=== PATIENT | male | born 1955 | race Caucasian/White ===

== ENCOUNTER 2024-05-25 12:15 | Observation (INO) | payer OTHER ==
[2024-05-25] MEDS: SODIUM CHLORIDE 0.9% 500 ML INFUS.BAG IV ONE (13:18)
[2024-05-25 13:51] LABS: BASO % 1.6 % (0-2.0); EOS % 2.9 % (0-4.5); HEMATOCRIT 43.8 % (35.4-49); HEMOGLOBIN 14.6 GM/dL (11.7-16.9); LYMPH % 16.6 % (8-40); MCH 28.6 pg (25.7-33.7); MCHC 33.3 g/dl (32.0-35.9); MEAN CELL VOLUME 85.7 fl (80-96); MEAN PLT VOLUME 8.9 fl (7.5-11.1); MONO % 9.8 % (3.8-10.2); NEUT % 69.1 % (42.8-82.8); PLATELET COUNT 241 10^3/uL (134-434); RBC 5.11 M/mm3 (4.00-5.60); WHITE BLOOD COUNT 7.7 K/mm3 (4.0-10.0)
[2024-05-25 13:58] LABS: INR 1.02 (0.83-1.09); PROTHROMBIN TIME (PATIENT) 11.2 SEC (9.7-13.0)
[2024-05-25 14:01] LABS: ACTIVATED PTT 28.8 SECONDS (25.2-36.5)
[2024-05-25 14:45] LABS: ERYTHROCYTE SEDIMENTATION RATE 10 mm/hr (0-20)
[2024-05-25 15:19] LABS: ALBUMIN 3.6 g/dl (3.4-5.0); CALCIUM 8.5 mg/dL (8.5-10.1)
[2024-05-25 15:22] LABS: CREATININE 1.1 mg/dL (0.55-1.3)
[2024-05-25 15:24] LABS: BILIRUBIN,TOTAL 0.5 mg/dL (0.2-1); TOT PROT 6.8 g/dl (6.4-8.2)
[2024-05-25 16:29] LABS: HIV INTERPRETATION NEGATIVE (NEGATIVE)
[2024-05-25] MEDS ORDERED: ACETAMINOPHEN 325 MG TABLET (FP) PO PRN (16:29)
[2024-05-25] MEDS ORDERED: INSULIN ASPART SLIDING SCALE (NOVOLOG) 1 VIAL SQ ONE (17:59)
[2024-05-25] MEDS: INSULIN ASPART SLIDING SCALE (NOVOLOG) 1 VIAL SQ SCH (18:10)
[2024-05-25] MEDS ORDERED: PATIENT'S OWN MEDICATION (NON-FORMULARY) (Gabapentin [Neurontin] 600 MG Tablet) PO SCH (22:00)
[2024-05-25] MEDS: GABAPENTIN 300 MG CAPSULE PO SCH (22:24)
[2024-05-26] MEDS: BUPIVACAINE HCL/PF 0.5% (5 MG/ML) 30 ML VIAL IJ ONE
[2024-05-26 03:21] VITALS: BMI 34.4
[2024-05-26] MEDS: HYDROCHLOROTHIAZIDE 25 MG TABLET (FP) PO SCH (09:16)
[2024-05-26] MEDS: ASPIRIN 81 MG CHEWABLE TABLETS PO SCH (09:16)
[2024-05-26] MEDS: LISINOPRIL 20 MG TABLET PO SCH (09:16)
[2024-05-26] MEDS: FUROSEMIDE 20 MG TABLET (FP) PO SCH (09:16)
[2024-05-26] MEDS: amLODIPine BESYLATE 2.5 MG TABLET (FP) PO SCH (09:16)
[2024-05-26 09:30] LABS: BASO % 2.3 % (0-2.0); EOS % 5.7 % (0-4.5); HEMATOCRIT 43.1 % (35.4-49); HEMOGLOBIN 13.9 GM/dL (11.7-16.9); LYMPH % 19.6 % (8-40); MCH 28.2 pg (25.7-33.7); MCHC 32.3 g/dl (32.0-35.9); MEAN CELL VOLUME 87.3 fl (80-96); MEAN PLT VOLUME 8.9 fl (7.5-11.1); MONO % 8.4 % (3.8-10.2); PLATELET COUNT 208 10^3/uL (134-434); RBC 4.94 M/mm3 (4.00-5.60); RDW 14.1 % (11.9-15.9)
[2024-05-26 09:58] LABS: POTASSIUM 4.1 mmol/L (3.5-5.1)
[2024-05-26 10:00] LABS: ALBUMIN 3.2 g/dl (3.4-5.0); BLOOD UREA NITROGEN 17.7 mg/dL (7-18); CALCIUM 8.1 mg/dL (8.5-10.1)
[2024-05-26] MEDS ORDERED: AMLODIPINE BESYLATE 2.5 MG PO SCH (10:00)
[2024-05-26] MEDS ORDERED: PATIENT'S OWN MEDICATION (NON-FORMULARY) (Lisinopril/Hydrochlorothiazide [Lisinopril-Hctz PO SCH (10:00)
[2024-05-26 10:03] LABS: PHOSPHOROUS 1.8 mg/dL (2.5-4.9)
[2024-05-26 10:05] LABS: BILIRUBIN,TOTAL 0.8 mg/dL (0.2-1); TOT PROT 6.1 g/dl (6.4-8.2)
[2024-05-26] MEDS ORDERED: LIDOCAINE HCL 2% (20ML MULTI-DOSE VIAL) ONE (13:28)
[2024-05-26] MEDS ORDERED: BUPIVACAINE HCL/PF 0.5% (5MG/ML) 10 ML VIAL ONE (13:28)
[2024-05-26] MEDS ORDERED: LIDOCAINE HCL 1%, 10 MG/ML (20ML VIAL) ONE (13:28)
[2024-05-26] MEDS: NAPH,MB-DB/K PH,MBDB POWDER PACKET PO ONE ×2 (13:51→21:50)
[2024-05-26] MEDS ORDERED: LIDOCAINE HCL/PF 2% SDV 5ML VIAL ONE (14:36)
[2024-05-26] MEDS ORDERED: PROPOFOL 40 ML ONE (14:36)
[2024-05-26] MEDS ORDERED: MIDAZOLAM HCL 2 MG/2 ML SINGLE DOSE VIAL ONE (14:39)
[2024-05-26] MEDS: LIDOCAINE HCL 2% (50ML VIAL) INF ONE ×3 (15:23)
[2024-05-26] MEDS ORDERED: PROPOFOL 20 ML ONE (15:53)
[2024-05-26] MEDS ORDERED: ONDANSETRON 4 MG/2 ML VIAL IVPUSH PRN ×2 (16:12→16:24)
[2024-05-26] MEDS ORDERED: ACETAMINOPHEN 1000 MG/100 ML BAG IVPB ONE (16:12)
[2024-05-26] MEDS ORDERED: KETOROLAC TROMETHAMINE 30 MG/1 ML VIAL IVPUSH ONE ×2 (16:13→16:24)
[2024-05-26] MEDS ORDERED: LACTATED RINGERS SOLUTION 1,000 ML IV SCH ×2 (16:15→16:24)
[2024-05-26] MEDS: ACETAMINOPHEN 1000 MG/100 ML BAG IVPB ONE (16:34)
[2024-05-26] MEDS: INSULIN ASPART SLIDING SCALE (NOVOLOG) 1 VIAL SQ SCH (17:22)
[2024-05-26 18:29] VITALS: RESP 18
[2024-05-26] MEDS: GABAPENTIN 300 MG CAPSULE PO SCH (21:32)
[2024-05-27 04:10] VITALS: BP 100/67; PULSE 75; TEMP 97.2
[2024-05-27] MEDS: ACETAMINOPHEN 325 MG TABLET (FP) PO PRN (09:08)
[2024-05-27] MEDS: HYDROCHLOROTHIAZIDE 25 MG TABLET (FP) PO SCH (09:09)
[2024-05-27] MEDS: ASPIRIN 81 MG CHEWABLE TABLETS PO SCH (09:09)
[2024-05-27] MEDS: LISINOPRIL 20 MG TABLET PO SCH (09:09)
[2024-05-27] MEDS: amLODIPine BESYLATE 2.5 MG TABLET (FP) PO SCH (09:09)
[2024-05-27 09:54] LABS: HEMOGLOBIN 15.6 GM/dL (11.7-16.9); MCH 28.6 pg (25.7-33.7); MCHC 33.3 g/dl (32.0-35.9); MEAN CELL VOLUME 86.1 fl (80-96); MEAN PLT VOLUME 8.6 fl (7.5-11.1); PLATELET COUNT 253 10^3/uL (134-434); RBC 5.46 M/mm3 (4.00-5.60); RDW 13.9 % (11.9-15.9); WHITE BLOOD COUNT 10.2 K/mm3 (4.0-10.0)
[2024-05-27 10:35] LABS: BLOOD UREA NITROGEN 20.2 mg/dL (7-18); POTASSIUM 4.2 mmol/L (3.5-5.1)
[2024-05-28] MEDS ORDERED: FUROSEMIDE 20 MG TABLET (FP) PO SCH (10:00)
== END 2024-05-27 13:31 | disposition home or self-care (01) ==
LOC: JER 12:15 → JERBED 16:02 → J6S 19:12
PROVIDERS: ADMIT Internal Medicine; ATTEND Internal Medicine
PROC: 0QBQ0ZX Excision of Right Toe Phalanx, Open Approach, Diagnostic (ICD-10-PCS; principal; 2024-05-25)
PROC: 3E033NZ Introduction of Analgesics, Hypnotics, Sedatives into Peripheral Vein, Percutaneous Approach (ICD-10-PCS; 2024-05-25)
PROC: 3E013VG Introduction of Insulin into Subcutaneous Tissue, Percutaneous Approach (ICD-10-PCS; 2024-05-25)
PROC: 3E0337Z Introduction of Electrolytic and Water Balance Substance into Peripheral Vein, Percutaneous Approach (ICD-10-PCS; 2024-05-25)
DX: M86.671 Other chronic osteomyelitis, right ankle and foot (principal); L97.519 Non-pressure chronic ulcer of other part of right foot with unspecified severity; E10.40 Type 1 diabetes mellitus with diabetic neuropathy, unspecified; E10.621 Type 1 diabetes mellitus with foot ulcer; I10 Essential (primary) hypertension; M86.9 Osteomyelitis, unspecified; S91.101A Unspecified open wound of right great toe without damage to nail, initial encounter; X58.XXXA Exposure to other specified factors, initial encounter
CPT/HCPCS: 36415; 73630-TC-RT-FY; 80048; 80053; 82962; 83735; 84100; 85025; 85027; 85610; 85651; 85730; 86140; 86803; 86850; 86900; 86901; 87070; 87075; 87186; 87205; 87389; 88307-TC; 88311-TC; 93005; 93010; 94760; 96372; 96374; 99285-25; G0378; J0131

== ENCOUNTER 2024-06-01 11:13 | Inpatient (IN) | payer OTHER ==
[2024-06-01 13:25] LABS: INR 0.98 (0.83-1.09); PROTHROMBIN TIME (PATIENT) 10.7 SEC (9.7-13.0)
[2024-06-01 13:26] LABS: EOS % 5.4 % (0-4.5); HEMATOCRIT 44.2 % (35.4-49); LYMPH % 21.4 % (8-40); MCH 29.1 pg (25.7-33.7); MEAN CELL VOLUME 85.7 fl (80-96); MONO % 9.5 % (3.8-10.2); NEUT % 61.7 % (42.8-82.8); RBC 5.15 M/mm3 (4.00-5.60); RDW 14.3 % (11.9-15.9); WHITE BLOOD COUNT 9.2 K/mm3 (4.0-10.0)
[2024-06-01 13:28] LABS: ACTIVATED PTT 21.1 SECONDS (25.2-36.5)
[2024-06-01 13:53] LABS: CHLORIDE 102 mmol/L (98-107); SODIUM 135 mmol/L (136-145)
[2024-06-01 13:55] LABS: CALCIUM 8.7 mg/dL (8.5-10.1)
[2024-06-01 13:56] LABS: ALBUMIN 3.3 g/dl (3.4-5.0); BLOOD UREA NITROGEN 26.8 mg/dL (7-18); CO2 29 mmol/L (21-32); GLUCOSE,RANDOM 141 mg/dL (74-106)
[2024-06-01 13:59] LABS: CREATININE 1.2 mg/dL (0.55-1.3); SGOT/AST 65 U/L (15-37); SGPT/ALT 33 U/L (13-61)
[2024-06-01 14:00] LABS: ANION GAP 4 mmol/L (4-13); POTASSIUM 8.6 mmol/L (3.5-5.1)
[2024-06-01 14:01] LABS: BILIRUBIN,TOTAL 0.6 mg/dL (0.2-1); TOT PROT 7.2 g/dl (6.4-8.2)
[2024-06-01 14:02] LABS: ALK PHOS 66 U/L (45-117)
[2024-06-01] MEDS: FUROSEMIDE 20 MG TABLET (FP) PO SCH ×2 (14:49→17:23)
[2024-06-01 15:28] LABS: ERYTHROCYTE SEDIMENTATION RATE 7 mm/hr (0-20)
[2024-06-01] MEDS ORDERED: FUROSEMIDE 20 MG TABLET (FP) PO SCH (16:00)
[2024-06-01 16:07] VITALS: BMI 33.3
[2024-06-01] MEDS: CEFTRIAXONE 2 GM-D5W BAG 2 GM/50 ML BAG IVPB SCH (17:21)
[2024-06-01] MEDS: INSULIN ASPART SLIDING SCALE (NOVOLOG) 1 VIAL SQ SCH (17:21)
[2024-06-01 19:57] LABS: CALCIUM 8.5 mg/dL (8.5-10.1)
[2024-06-01 19:58] LABS: BLOOD UREA NITROGEN 23.2 mg/dL (7-18)
[2024-06-01 20:01] LABS: CREATININE 1.1 mg/dL (0.55-1.3)
[2024-06-01] MEDS: GABAPENTIN 300 MG CAPSULE PO SCH (21:33)
[2024-06-01] MEDS ORDERED: PATIENT'S OWN MEDICATION (NON-FORMULARY) (Gabapentin [Neurontin] 600 MG Tablet) PO SCH (22:00)
[2024-06-02] MEDS ORDERED: PATIENT'S OWN MEDICATION (NON-FORMULARY) (Lisinopril/Hydrochlorothiazide [Lisinopril-Hctz PO SCH (10:00)
[2024-06-02] MEDS ORDERED: AMLODIPINE BESYLATE 2.5 MG PO SCH (10:00)
[2024-06-02] MEDS: ASPIRIN 81 MG CHEWABLE TABLETS PO SCH (10:21)
[2024-06-02] MEDS: HYDROCHLOROTHIAZIDE 25 MG TABLET (FP) PO SCH (10:21)
[2024-06-02] MEDS: LISINOPRIL 20 MG TABLET PO SCH (10:22)
[2024-06-02] MEDS: amLODIPine BESYLATE 2.5 MG TABLET (FP) PO SCH (10:22)
[2024-06-02 12:41] LABS: BASO % 0.7 % (0-2.0); EOS % 5.3 % (0-4.5); HEMATOCRIT 45.4 % (35.4-49); HEMOGLOBIN 14.9 GM/dL (11.7-16.9); LYMPH % 18.4 % (8-40); MCH 28.7 pg (25.7-33.7); MCHC 32.9 g/dl (32.0-35.9); MEAN CELL VOLUME 87.4 fl (80-96); MEAN PLT VOLUME 9.1 fl (7.5-11.1); MONO % 6.2 % (3.8-10.2); NEUT % 69.4 % (42.8-82.8); PLATELET COUNT 232 10^3/uL (134-434); RDW 14.1 % (11.9-15.9); WHITE BLOOD COUNT 7.1 K/mm3 (4.0-10.0)
[2024-06-02] MEDS: INSULIN (LEVEMIR) 100 UNITS/ML UNITS SQ SCH (21:28)
[2024-06-03 14:55] VITALS: BP 123/67; PULSE 86; RESP 18; TEMP 97.5
[2024-06-03] MEDS ORDERED: INSULIN GLARGINE (LANTUS) 100 UNITS/ML UNITS SQ SCH (22:00)
== END 2024-06-03 15:39 | disposition home or self-care (01) | DRG 638 ==
LOC: JER 11:13 → JERBED 13:50 → J5S 15:14
PROVIDERS: ADMIT Student in an Organized Health Care Education/Training Program; ATTEND Internal Medicine
PROC: 05HY33Z Insertion of Infusion Device into Upper Vein, Percutaneous Approach (ICD-10-PCS; principal; 2024-06-03)
DX: E10.69 Type 1 diabetes mellitus with other specified complication (principal); L97.919 Non-pressure chronic ulcer of unspecified part of right lower leg with unspecified severity; M86.8X7 Other osteomyelitis, ankle and foot; I10 Essential (primary) hypertension; L97.529 Non-pressure chronic ulcer of other part of left foot with unspecified severity; E10.51 Type 1 diabetes mellitus with diabetic peripheral angiopathy without gangrene
CPT/HCPCS: 36415; 36569; 80048; 80053; 82962; 85025; 85610; 85651; 85730; 86140; 87040; 93005; 93010; 93922; 99285-25